=== PATIENT | female | born 1985 | race Caucasian/White ===

== ENCOUNTER 2022-04-18 23:50 | Emergency (ER) | payer MEDICAID ==
[~2022-04-18] VITALS: Ht 170.2 cm; Wt 61.2 kg
[2022-04-19 01:01] LABS: HEMATOCRIT 39.1 % (31.2-41.9); MEAN CORPUSCULAR HEMOGLOBIN 32.4 uug (24.7-32.8); MEAN CORPUSCULAR VOLUME 94.9 fL (75.5-95.3); PLATELET COUNT (AUTO) 222 K/uL (179-408)
[2022-04-19 01:04] LABS: CARBON DIOXIDE 26 mmol/L (21-32); CHLORIDE 102 mmol/L (98-107); CREATININE 0.7 mg/dL (0.6-1.3); GLUCOSE 106 mg/dL (74-106); POTASSIUM 4.2 mmol/L (3.5-5.1); UREA NITROGEN, BLOOD 10 mg/dL (7-18)
[2022-04-19] MEDS ORDERED: LORA-259 PO (02:46)
--- NOTE | 2022-04-19 03:10 | NUR ---
IV removed. Catheter intact and site benign. Pressure and 4x4 gauze applied to site. No bleeding noted.
--- NOTE | 2022-04-19 03:20 | NUR ---
Patient discharged to home in stable condition WITH TAXI TAKING PATIENT HOME. Written and verbal after care instructions given. Patient verbalizes understanding of instructions. Stressed follow up or return to ER for worsening s/s.
[2022-04-19 04:53] VITALS: BP 125/76
== END 2022-04-19 03:19 | disposition home or self-care (01) ==
LOC: ER 23:53
DX: R07.89 Other chest pain (principal); R00.2 Palpitations; E83.42 Hypomagnesemia; R94.31 Abnormal electrocardiogram [ECG] [EKG]
CPT/HCPCS: 36415; 71045; 83735; 84484; 85025; 93005; A4663

== ENCOUNTER 2023-03-24 19:13 | Inpatient (IN) | payer MEDICAID ==
[~2023-03-24] VITALS: Ht 157.5 cm; Wt 50.8 kg
[~2023-03-24 19:13] MED LIST: LORA-259 PO
[2023-03-24] MEDS ORDERED: PANTOPRAZOLE SODIUM IV 80 MG in IV DEXTROSE 5% 100 ML IV ONE (20:45)
[2023-03-24] MEDS ORDERED: IV NORMAL SALINE 1000 ML BAG IV ONE (20:45)
[2023-03-24] MEDS ORDERED: ONDANSETRON 4 MG/2 ML VIAL IV ONE (20:45)
[2023-03-24] MEDS ORDERED: PANTOPRAZOLE SODIUM 40 MG VIAL ONE (20:52)
[2023-03-24] MEDS ORDERED: ONDANSETRON 4 MG/2 ML VIAL ONE (20:52)
[2023-03-24 20:56] LABS: BASOPHILS % (AUTO) 0.1 % (0.0-2.0); HEMATOCRIT 38.9 % (31.2-41.9); HEMOGLOBIN 12.9 g/dL (10.9-14.3); LYMPHOCYTES # (AUTO) 2.7 K/uL (0.8-4.8); LYMPHOCYTES % (AUTO) 50.5 % (20.5-51.5); MEAN CORPUSCULAR HEMOGLOBIN 31.9 uug (24.7-32.8); MEAN CORPUSCULAR HGB CONC 33 g/dL (32.3-35.6); MEAN CORPUSCULAR VOLUME 96.3 fL (75.5-95.3); MONOCYTES # (AUTO) 0.3 K/uL (0.1-1.30); MONOCYTES % (AUTO) 6.1 % (0.0-11.0); NEUTROPHILS # (AUTO) 2.4 K/uL (1.8-8.9); NEUTROPHILS % (AUTO) 43.3 % (38.5-71.5); PLATELET COUNT (AUTO) 184 K/uL (179-408); RED BLOOD CELL COUNT(AUTO) 4.03 MIL/uL (3.63-4.92); RED CELL DISTRIBUTION WIDTH 13.4 % (12.3-17.7); WHITE BLOOD COUNT (AUTO) 5.4 K/uL (3.8-11.8)
[2023-03-24 21:00] LABS: CALCIUM 8.5 mg/dL (8.5-10.1); CREATININE 0.6 mg/dL (0.6-1.3); DIFFERENTIAL COMMENT 1; POTASSIUM 3.9 mmol/L (3.5-5.1)
[2023-03-24 21:03] LABS: *URINE HCG, QUAL NEGATIVE (NEGATIVE)
[2023-03-24 21:06] LABS: ALBUMIN 4.1 g/dL (3.4-5.0); BILIRUBIN,DIRECT 0.1 mg/dL (0.0-0.2); BILIRUBIN,TOTAL 0.5 mg/dL (0.2-1.0); TOTAL PROTEIN, SERUM 8.1 g/dL (6.4-8.2)
[2023-03-24 21:20] LABS: *OCCULT BLOOD STOOL NEGATIVE (NEGATIVE)
[2023-03-25] MEDS ORDERED: REMEDY ESSENTIAL ZINC PASTE 113 GM TP PRN (00:15)
[2023-03-25] MEDS ORDERED: ACETAMINOPHEN 325 MG TABLET PO PRN (00:15)
[2023-03-25] MEDS ORDERED: MAGNESIUM HYDROXIDE 30 ML LIQUID UDC PO PRN (00:15)
[2023-03-25] MEDS ORDERED: IV NS 1000 ML 1,000 ML IV PRN (00:15)
[2023-03-25] MEDS ORDERED: ONDANSETRON 4 MG/2 ML VIAL IV PRN (00:15)
[2023-03-25 01:33] VITALS: BP 126/87; TEMP 98; O2SAT 97
[2023-03-25 04:00] VITALS: BP 124/80; TEMP 98.2; O2SAT 97
[2023-03-25 08:46] LABS: BASOPHILS % (AUTO) 0.4 % (0.0-2.0); HEMATOCRIT 37.2 % (31.2-41.9); HEMOGLOBIN 12.4 g/dL (10.9-14.3); LYMPHOCYTES # (AUTO) 1.8 K/uL (0.8-4.8); MEAN CORPUSCULAR HGB CONC 33 g/dL (32.3-35.6); MEAN CORPUSCULAR VOLUME 95.9 fL (75.5-95.3); MONOCYTES # (AUTO) 0.5 K/uL (0.1-1.30); MONOCYTES % (AUTO) 7.6 % (0.0-11.0); NEUTROPHILS # (AUTO) 3.7 K/uL (1.8-8.9); PLATELET COUNT (AUTO) 153 K/uL (179-408); RED BLOOD CELL COUNT(AUTO) 3.88 MIL/uL (3.63-4.92); RED CELL DISTRIBUTION WIDTH 13.2 % (12.3-17.7); WHITE BLOOD COUNT (AUTO) 5.9 K/uL (3.8-11.8)
[2023-03-25 08:49] LABS: DIFFERENTIAL COMMENT 1
[2023-03-25] MEDS: PANTOPRAZOLE SODIUM 40 MG VIAL IV SCH ×2 (09:01→20:56)
[2023-03-25 09:08] LABS: IRON, SERUM 218 ug/dL (50-175)
[2023-03-25] MEDS ORDERED: IV D5/ 0.9% NACL 1,000 ML IV PRN (10:15)
[2023-03-25 11:29] VITALS: BP 122/78; TEMP 98.5; O2SAT 98
[2023-03-25 15:29] VITALS: BP 135/82; TEMP 97.7; O2SAT 98
[2023-03-25] MEDS ORDERED: EPINEPHRINE-PF 1:1000 1 MG/ML AMPUL ONE (19:24)
[2023-03-25] MEDS ORDERED: SUCCINYLCHOLINE CHLORIDE 200 MG/10 ML VIAL ONE (19:30)
[2023-03-25 20:27] VITALS: TEMP 98.4
[2023-03-25] MEDS ORDERED: ESOM40CA PO (20:50)
== END 2023-03-25 21:55 | disposition home or self-care (01) | DRG 241 ==
LOC: ER 19:17 → MEDSURG3 03-25 00:10
PROVIDERS: ADMIT Internal Medicine; ATTEND Internal Medicine
PROC: 0DB58ZX Excision of Esophagus, Via Natural or Artificial Opening Endoscopic, Diagnostic (ICD-10-PCS; principal; 2023-03-25)
PROC: 0DB68ZX Excision of Stomach, Via Natural or Artificial Opening Endoscopic, Diagnostic (ICD-10-PCS; principal; 2023-03-25)
DX: K29.01 Acute gastritis with bleeding (principal); D75.89 Other specified diseases of blood and blood-forming organs; E53.8 Deficiency of other specified B group vitamins; K59.00 Constipation, unspecified; Z20.822 Contact with and (suspected) exposure to COVID-19; F17.210 Nicotine dependence, cigarettes, uncomplicated; K29.51 Unspecified chronic gastritis with bleeding
CPT/HCPCS: 36415; 71045; 74021; 83550; 83690; 84703; 85025; 85730; 86850; 86900; 86901; 93005; A4663; C9113; G0378; J0171; J0330; J2405; J7040; J7042; J7120

== ENCOUNTER 2023-09-12 18:51 | Emergency (ER) | payer MEDICAID ==
[~2023-09-12] VITALS: Ht 165.1 cm; Wt 49.9 kg
[~2023-09-12 18:51] MED LIST changes: +ESOM40CA PO; -LORA-259 PO
[2023-09-12 21:21] LABS: BASOPHILS % (AUTO) 0.8 % (0.0-2.0); HEMATOCRIT 35.9 % (31.2-41.9); HEMOGLOBIN 12.3 g/dL (10.9-14.3); LYMPHOCYTES % (AUTO) 41.6 % (20.5-51.5); MEAN CORPUSCULAR HEMOGLOBIN 32.6 uug (24.7-32.8); MEAN CORPUSCULAR HGB CONC 34 g/dL (32.3-35.6); MEAN CORPUSCULAR VOLUME 95.5 fL (75.5-95.3); MONOCYTES # (AUTO) 0.5 K/uL (0.1-1.30); MONOCYTES % (AUTO) 11.2 % (0.0-11.0); NEUTROPHILS # (AUTO) 2.2 K/uL (1.8-8.9); NEUTROPHILS % (AUTO) 46.4 % (38.5-71.5); PLATELET COUNT (AUTO) 237 K/uL (179-408); RED BLOOD CELL COUNT(AUTO) 3.77 MIL/uL (3.63-4.92); WHITE BLOOD COUNT (AUTO) 4.7 K/uL (3.8-11.8)
[2023-09-12] MEDS ORDERED: ASPIRIN 81 MG TAB.CHEW ONE (21:36)
[2023-09-12] MEDS: ASPIRIN 81 MG TAB.CHEW PO ONE (21:39)
[2023-09-12 21:41] LABS: CALCIUM 8.9 mg/dL (8.5-10.1); CARBON DIOXIDE 26 mmol/L (21-32); CHLORIDE 103 mmol/L (98-107); CREATININE 0.8 mg/dL (0.6-1.3); GLUCOSE 94 mg/dL (74-106); POTASSIUM 3.6 mmol/L (3.5-5.1); SODIUM SERUM 139 mmol/L (136-145); UREA NITROGEN, BLOOD 11 mg/dL (7-18)
[2023-09-12 21:58] LABS: ALANINE AMINOTRANSFERASE 63 U/L (14-59); ALBUMIN 3.9 g/dL (3.4-5.0); ALKALINE PHOSPHATASE 43 U/L (50-136); ASPARTATE AMINOTRANSFERASE 27 U/L (15-37); BILIRUBIN,DIRECT 0.1 mg/dL (0.0-0.2); BILIRUBIN,TOTAL 0.2 mg/dL (0.2-1.0); NT-PRO BNP 37 pg/mL (0-125); TOTAL PROTEIN, SERUM 7.8 g/dL (6.4-8.2)
[2023-09-12] MEDS ORDERED: ALPR0.5T PO (23:22)
[2023-09-12 23:46] VITALS: BP 125/89; TEMP 98; O2SAT 100
== END 2023-09-12 23:47 | disposition home or self-care (01) ==
LOC: ER 18:54
DX: R07.89 Other chest pain (principal); R00.2 Palpitations; F41.9 Anxiety disorder, unspecified; Z79.899 Other long term (current) drug therapy
CPT/HCPCS: 36415; 71045; 84484; 85025; 93005; A4606; A4663